=== PATIENT | male | born 1955 | race Caucasian/White ===

== ENCOUNTER 2019-03-08 14:35 | Emergency (ER) | payer BC, OTHER ==
[2019-03-08 14:43] VITALS: BP 162/74
[2019-03-08] MEDS ORDERED: TETANUS/DIPHTHERIA/PERTUSSIS 0.5 ML SYRINGE IM ONE (14:55)
--- NOTE | 2019-03-08 14:57 | ED Physician Documentation ---
PD HPI HEAD INJURY - Stated complaint Stated Complaint: HEAD LAC - Chief complaint Chief Complaint: Laceration - History obtained from History obtained from: Patient - History of Present Illness Mechanism of head injury: Other (hit head on a hay hook) Pain level max: 0 Pain level now: 0 Location of injury: Top Associated symptoms: No: LOC, AMS, Amnesia, Nausea / vomiting, Neck pain, Paresthesias, Seizures, Ear drainage, Nasal drainage Symptoms improve with: Rest Symptoms worsen with: Palpation Contributing factors: No: Anticoagulated, Intoxicated - Additional information Additional information: 63-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 Has a laceration to the top of his head. Nothing makes it better or worse. No loss of consciousness. No vomiting. Unknown last tetanus Review of Systems GI: denies: Vomiting Musculoskeletal: denies: Neck pain, Back pain Neurologic: denies: Headache, LOC PD PAST MEDICAL HISTORY - Past Medical History Past Medical History: No - Allergies Allergies/Adverse Reactions: Allergies Allergy/AdvReac Type Severity Reaction Status Date / Time No Known Drug Allergies Allergy Verified 03/08/19 14:43 - Living Situation Living Arrangement: reports: At home - Social History Does the pt have substance abuse?: No - Family History Family history: reports: Non contributory - Immunizations Immunizations: TDAP >10years/unknown PD ED PE NORMAL - Vitals Vital signs reviewed: Yes - General General: Alert and oriented X 3, No acute distress, Well developed/nourished - HEENT HEENT: PERRL, EOMI, Moist mucous membranes, Other (2 cm superficial laceration to the top of the head. No bleeding. 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, No motor deficit, No sensory deficit, Normal speech - Psych Psych: Normal mood, Normal affect Results - Vitals Vitals: Vital Signs - 24 hr 03/08/19 14:39 Temperature 36.3 C L Heart Rate 65 Respiratory 18 Rate Blood Pressure 162/74 H O2 Saturation 95 Oxygen O2 Source Nasal cannula Procedures - Laceration (location) Scalp Length in cm: 2 Wound type: Linear, Superficial, Clean Neurovascular status: Sensory intact, Motor intact, Vascular intact Wound Preparation: Irrigated copiously NS Skin layer closure: Dermabond Other: Patient tolerated well, No complications, Neurovascular intact, Tetanus booster given (Tdap) Complexity: Simple PD MEDICAL DECISION MAKING - ED course Complexity details: considered differential, d/w patient ED course: Laceration repaired. Tolerated well. Dermabond applied. Warnings of infection and instructions on wound care given at bedside. Tdap given no evidence of intracranial hemorrhage or skull fracture that would require repair. No indication for head CT. No neck pain. Patient counseled regarding signs and symptoms for which I believe and urgent re-evaluation would be necessary. Tanesha ent with good understanding of and agreement to plan and is comfortable going home at this time This document was made in part using voice recognition software. While efforts are made to proofread this document, sound alike and grammatical errors may occur. Departure - Departure Disposition: 01 Home, Self Care Clinical Impression: Scalp laceration Qualifiers: Encounter type: initial encounter Qualified Code(s): S01.01XA - Laceration without foreign body of scalp, initial encounter Condition: Good Instructions: ED Laceration Facial Skin Glue Follow-Up: Fadi Linn MD [Primary Care Provider] - As Needed Comments: Return if you worsen, especially for redness, swelling or drainage from the wound.
== END 2019-03-08 15:07 | disposition home or self-care (01) ==
LOC: ED 14:35
DX: S01.01XA Laceration without foreign body of scalp, initial encounter (principal); W22.09XA Striking against other stationary object, initial encounter; Y93.89 Activity, other specified; Y92.79 Other farm location as the place of occurrence of the external cause; Z23 Encounter for immunization
CPT/HCPCS: 12001; 90471

== ENCOUNTER 2022-09-27 12:24 | Emergency (ER) | payer MEDICARE, OTHER ==
[2022-09-27] MEDS ORDERED: LIDOCAINE 1%-EPI 1:100000 10 ML MDV SUBQ STA (12:49)
--- NOTE | 2022-09-27 13:24 | ED Physician Documentation ---
PD HPI SKIN - Stated complaint Stated Complaint: LT CHEEK INJ - Chief complaint Chief Complaint: Laceration - History obtained from History obtained from: Patient - Additional information Additional information: This is a 66-year-old male who sustained a laceration to his left cheek. He was at work, and installs septic systems. He apparently slipped and fell into a clean pipe sticking up out of the system. He was lacerated by this pipe on the left cheek. He denies any other injuries, and denies any head injury or loss of consciousness. He is up-to-date on his tetanus. PD PAST MEDICAL HISTORY - Past Medical History Past Medical History: Yes Cardiovascular: Hypertension, High cholesterol Respiratory: None Neuro: None Endocrine/Autoimmune: None GI: None : None HEENT: None Psych: None Musculoskeletal: None Derm: Other - Past Surgical History Past Surgical History: Yes Derm: Other - Present Medications Home Medications: Ambulatory Orders Medication Instructions Recorded Confirmed Rosuvastatin Calcium [Crestor] 5 mg PO DAILY 09/27/22 09/27/22 amLODIPine [Norvasc] 5 mg PO DAILY 09/27/22 09/27/22 - Allergies Allergies/Adverse Reactions: Allergies Allergy/AdvReac Type Severity Reaction Status Date / Time No Known Drug Allergies Allergy Verified 09/27/22 12:36 - Social History Does the pt smoke?: No Smoking Status: Never smoker Does the pt drink ETOH?: No Does the pt have substance abuse?: No - Immunizations Immunizations are current?: No Immunizations: TDAP current <10years - POLST Patient has POLST: No PD ED PE NORMAL - Vitals Vital signs reviewed: Yes - General General: Alert and oriented X 3, No acute distress, Well developed/nourished - HEENT HEENT: Atraumatic, PERRL, EOMI, Moist mucous membranes, Pharynx benign - Neck Neck: Supple, no meningeal sign, No adenopathy, No JVD - Derm Derm: Normal color, Warm and dry, Other (5 cm L-shaped laceration along the left jawline. Through the subcutaneous tissue.) - Neuro Neuro: Alert and oriented X 3 Eye Opening: Spontaneous Motor: Obeys Commands Verbal: Oriented GCS Score: 15 - Psych Psych: Normal mood, Normal affect Results - Vitals Vitals: Vital Signs - 24 hr 06/19/23 12:36 Temperature 37 C Heart Rate 81 Respiratory 16 Rate Blood Pressure 152/91 H O2 Saturation 94 Oxygen O2 Source Room air Procedures - Laceration (location) Face left Length in cm: 5 Wound type: Irregular, Into subcut fat Anesthesia: Lidocaine 1% with epi Wound preparation: Hibiclens, Irrigated copiously NS Deep layer closure: Vicryl Skin layer closure: Interrupted (Vicryl), Size #-0 - enter number (5), Sutures - enter # (9) Other: Patient tolerated well, No complications, Dressing applied, Tetanus UTD PD Medical Decision Making - ED course Complexity details: d/w patient ED course: 66-year-old male presented after sustaining a laceration to the left cheek. Laceration is through the subcutaneous tissue and does require suture repair. I discussed with this patient and he verbally consented to laceration repair. Site was prepped in usual manner and anesthetized locally with 1% lidocaine with epinephrine. After adequate anesthesia achieved, irrigated thoroughly with normal saline and Hibiclens and there were no visible debris or foreign bodies. I then closed the wound with a total of 9 #5.0 dissolvable sutures. There are a couple areas of skin tear and additional scratches that were not able to be repaired. The wound edges did come together well however and patient was given instructions on home wound care, keeping the area dry, and return precautions if there are any signs of infection. The patient is up-to-date on his tetanus SNI repeat tetanus was not given today. This was a work-related injury and I have asked the patient to fill out L&I paperwork and I will complete my portion when it is returned to me. Departure - Departure Disposition: 01 Home, Self Care Clinical Impression: Laceration of left cheek Qualifiers: Encounter type: initial encounter Qualified Code(s): S01.412A - Laceration without foreign body of left cheek and temporomandibular area, initial encounter Condition: Good Instructions: ED Laceration Facial Sutr Tape Comments: We repaired a deep laceration on your left cheek. I have placed 9 dissolvable sutures in this laceration. Please monitor the site for any signs of infection such as sudden increase in pain, redness, increased swelling, or purulent drainage. If these were to occur, you would need to seek care in the ER. Please avoid getting the wound wet, but if it does get wet in the shower, simply pat dry. Do not soak or go swimming until the wound is healed.
[2022-09-27] MEDS ORDERED: LIDOCAINE 1%-EPI 1:100000 20 ML MDV SUBQ ONE (13:30)
[2022-09-27 14:03] VITALS: BP 149/88
== END 2022-09-27 13:58 | disposition home or self-care (01) ==
LOC: ED 12:24
DX: S01.412A Laceration without foreign body of left cheek and temporomandibular area, initial encounter (principal); W01.198A Fall on same level from slipping, tripping and stumbling with subsequent striking against other object, initial encounter; Y93.89 Activity, other specified; Y99.0 Civilian activity done for income or pay
CPT/HCPCS: 1040M; 12013; 99282

== ENCOUNTER 2023-10-27 16:11 | Emergency (ER) | payer OTHER ==
--- NOTE | 2023-10-27 16:42 | ED Physician Documentation ---
PD HPI SKIN - Stated complaint Stated Complaint: L HAND LAC - Chief complaint Chief Complaint: Laceration - Additional information Additional information: 67-year-old male with history of hypertension, hypercholesterolemia presents to the emergency department today for left hand laceration on the volar aspect. CMS intact he has full range of motion of all 5 fingers as well as wrist no numbness or tingling. Bleeding is noted at the site with significant swelling. Patient says that he was using a barytes grinder and it actually kicked back onto his left hand. PD PAST MEDICAL HISTORY - Past Medical History Cardiovascular: Hypertension, High cholesterol Respiratory: None Neuro: None Endocrine/Autoimmune: None GI: None : None HEENT: None Psych: None Musculoskeletal: None Derm: Other - Past Surgical History Past Surgical History: Yes Derm: Other - Present Medications Home Medications: Ambulatory Orders Medication Instructions Recorded Confirmed Rosuvastatin Calcium [Crestor] 5 mg PO DAILY 09/27/22 09/27/22 amLODIPine [Norvasc] 5 mg PO DAILY 09/27/22 09/27/22 - Allergies Allergies/Adverse Reactions: Allergies Allergy/AdvReac Type Severity Reaction Status Date / Time No Known Drug Allergies Allergy Verified 10/27/23 16:26 - Social History Does the pt smoke?: No Smoking Status: Never smoker Does the pt drink ETOH?: No Does the pt have substance abuse?: No - Immunizations Immunizations are current?: No Immunizations: TDAP current <10years - POLST Patient has POLST: No PD ED PE NORMAL - Vitals Vital signs reviewed: Yes - General General: Alert and oriented X 3, No acute distress, Well developed/nourished - HEENT HEENT: Atraumatic - Derm Derm: Other (Left hand volar laceration to the ulnar aspect about 3 cm in length with swelling and ecchymosis) - Extremities Extremities: Other (Left volar hand swelling with ecchymosis. Full range of motion all 5 fingers as well as wrist weaning at this point well-controlled) Results - Vitals Vitals: Vital Signs - 24 hr 10/27/23 10/27/23 16:26 18:15 Temperature 37 C 36.3 C L Heart Rate 88 74 Respiratory 16 16 Rate Blood Pressure 163/102 H 174/68 H O2 Saturation 97 99 Oxygen O2 Source Room air Procedures - Laceration (location) Left hand laceration Length in cm: 3 Wound type: Linear, Superficial, Clean Neurovascular status: Sensory intact Anesthesia: Lidocaine 1% with epi Wound preparation: Irrigated copiously NS, Wound explored, To the base Skin layer closure: Nylon, Interrupted, Size #-0 - enter number (4-0), Sutures - enter # (5) Other: Patient tolerated well, No complications, Neurovascular intact, Dressing applied, Tetanus UTD PD Medical Decision Making - ED course ED course: Wound inspected under direct bright light with good visualization. Area with linear laceration across soft tissue through adipose without exposure of muscle belly or tendon. No overt foreign body. Area hemostatic. Neurovascular exam congruent with above. Area extensively irrigated with sterile normal saline under pressure. Laceration repaired in simple fashion Was a total of 5 interrupted sutures (please see procedure note for further details). Patient tolerated procedure well and neurovascular exam intact and unchanged post repair with intact distal pulses and cap refill. Cautious return precautions discussed w/ full understanding. Wound care discussed. Prompt follow up with primary care physician discussed and return for suture removal in 12-14 days. Departure - Departure Disposition: 01 Home, Self Care Clinical Impression: Hand laceration Instructions: ED Laceration All Comments: Come back for any signs of infection which would include: Redness, swelling, drainage, increased pain, or fevers. You can wash it soap and water. Keep it covered and moist with bacitracin ointment which is available over the counter; avoid neosporin. Follow-up with your physician in 12-14 days for suture removal. Forms: PCP List Discharge Date/Time: 10/27/23 18:15
[2023-10-27] MEDS: LIDOCAINE 2%-EPI 1:100000 20 ML MDV SUBQ STA (16:55)
[2023-10-27] MEDS: BACITRACIN ZINC OINT 1 PACKET TOP STA (18:14)
[2023-10-27 18:24] VITALS: BP 174/68; O2SAT 99
== END 2023-10-27 18:15 | disposition home or self-care (01) ==
LOC: ED 16:11
DX: S61.412A Laceration without foreign body of left hand, initial encounter (principal); W29.8XXA Contact with other powered hand tools and household machinery, initial encounter; Y93.89 Activity, other specified; Y99.0 Civilian activity done for income or pay
CPT/HCPCS: 1040M; 12002; 99283